=== PATIENT | female | born 1950 | race Caucasian/White ===

== ENCOUNTER 2017-01-06 12:00 | Outpatient (CLI) | payer OTHER | END 2017-01-06 12:01 | disposition home or self-care (01) | DX: M19.011 Primary osteoarthritis, right shoulder (principal) ==

== ENCOUNTER 2018-08-10 09:51 | Outpatient (CLI) | payer OTHER ==
--- NOTE | 2018-08-11 12:20 | Mammography Report ---
Reason: SCREENING MAMMO Procedure Date: 08/10/2018 Accession Number: [id number] / [id number] Procedure: PAULETTE - Screening Mammo w/Loyd CPT Code: FULL RESULT: EXAM: Screening Mammo w/Loyd DATE: 08/10/2018 11:30 AM CLINICAL HISTORY: 68-year-old female for screening. TECHNIQUE: Bilateral CC and MLO views were obtained. COMPARISON: 04/29/2016, 04/22/2015, 03/22/2014, 09/29/2012. FINDINGS: The breasts demonstrate scattered fibroglandular densities bilaterally. A stable subcentimeter well-rounded partially hyperdense nodule in the lower left breast at the 6:00 position to mammographically demonstrates morphology suggestive of a lymph node, in conjunction with stability over time this is typically benign. No suspicious masses, clustered microcalcifications, or regions of architectural distortion are identified. IMPRESSION: Benign findings RECOMMENDATION: Routine annual screening unless otherwise clinically indicated. BIRADS CATEGORY 2: Benign findings STANDARD QUALIFYING STATEMENTS: 1. This examination was not reviewed with the aid of Computer-Aided Detection (CAD). 2. A negative or benign imaging report should not delay biopsy if clinically suspicious findings are present. Consider surgical consultation if warrented. More than 5% of cancers are not identified by imaging. 3. Dense breasts may obscure an underlying neoplasm. 4. This examination was reviewed with the aid of 3D breast imaging (tomosynthesis).
== END 2018-08-10 09:52 | disposition home or self-care (01) ==
LOC: DI 09:51
DX: Z12.31 Encounter for screening mammogram for malignant neoplasm of breast (principal)
CPT/HCPCS: 77063; 77067

== ENCOUNTER 2019-08-10 07:51 | Outpatient (CLI) | payer OTHER ==
[2019-08-10 08:21] LABS: BASOPHILS % (AUTO) 0.5 %; EOSINOPHILS # (AUTO) 0.2 10^3/uL (0.0-0.7); EOSINOPHILS % (AUTO) 5.2 %; HGB - HEMOGLOBIN 14.1 g/dL (12.0-16.0); LYMPHOCYTES # (AUTO) 1.7 10^3/uL (1.5-3.5); LYMPHOCYTES % (AUTO) 45.5 %; MEAN CORPUSCULAR HEMOGLOBIN 34.4 pg (27.0-31.0); MEAN CORPUSCULAR HGB CONC 33.7 g/dL (32.0-36.0); MEAN CORPUSCULAR VOLUME 102.2 fL (81.0-99.0); MEAN PLATELET VOLUME 8.8 fL (7.9-10.8); MONOCYTES # (AUTO) 0.3 10^3/uL (0.0-1.0); MONOCYTES % (AUTO) 9.3 %; NEUTROPHILS # (AUTO) 1.4 10^3/uL (1.5-6.6); NEUTROPHILS % (AUTO) 39.2 %; PLT - PLATELET COUNT 214 10^3/uL (130-450); RED CELL DISTRIBUTION WIDTH 12.7 % (12.0-15.0); WHITE BLOOD COUNT 3.7 x10^3/uL (4.8-10.8)
[2019-08-10 08:39] LABS: ALBUMIN 4.4 g/dL (3.2-5.5); ALBUMIN/GLOBULIN RATIO 1.5 (1.0-2.2); ALKALINE PHOSPHATASE 69 IU/L (42-121); ALT ALANINE AMINOTRANSFERASE 16 IU/L (10-60); AST ASPARTATE AMINOTRANSFERASE 22 IU/L (10-42); BILIRUBIN,TOTAL 0.7 mg/dL (0.2-1.0); BUN - BLOOD UREA NITROGEN 15 mg/dL (6-20); CALCIUM 9.5 mg/dL (8.5-10.3); CARBON DIOXIDE - CO2 30 mmol/L (21-32); CHLORIDE 103 mmol/L (101-111); CHOL/HDL RATIO 3.9 (<4.4); CHOLESTEROL 234 mg/dL; CREATININE 0.7 mg/dL (0.4-1.0); GFR - MDRD 83 (>89); GLUCOSE 93 mg/dL (70-100); HDL CHOLESTEROL 60 mg/dL; SODIUM 141 mmol/L (135-145); TOTAL PROTEIN 7.4 g/dL (6.7-8.2)
== END 2019-08-10 07:52 | disposition home or self-care (01) ==
LOC: LAB 07:51
PROVIDERS: ATTEND Family Medicine
DX: D49.2 Neoplasm of unspecified behavior of bone, soft tissue, and skin (principal); I48.0 Paroxysmal atrial fibrillation; M81.0 Age-related osteoporosis without current pathological fracture
CPT/HCPCS: 36415; 80053; 80061; 83721; 84443; 85025

== ENCOUNTER 2019-08-29 08:15 | Outpatient (CLI) | payer OTHER ==
--- NOTE | 2019-08-31 10:10 | Mammography Report ---
Reason: ROUTINE MAMMO Procedure Date: 08/29/2019 Accession Number: [id number] / [id number] Procedure: PAULETTE - Screening Mammo w/Loyd CPT Code: Final Report FULL RESULT: EXAM: Screening Mammo w/Loyd DATE: 08/29/2019 8:46 AM CLINICAL HISTORY: Routine screening TECHNIQUE: (B) - Bilateral CC and MLO views were obtained. COMPARISON: 08/10/2018, 04/29/2016, 04/22/2015, 03/22/2014, 09/29/2012, 11/02/2010, 04/27/2010, 11/14/2009 and 11/05/2009. PARENCHYMAL PATTERN: (A) - The breasts demonstrate scattered fibroglandular densities bilaterally. FINDINGS: No significant interval change. There are no suspicious masses, calcifications, or areas of distortion. IMPRESSION: Negative examination. BI-RADS category 1. RECOMMENDATION: (ANNUAL) - Recommend routine annual screening mammography. BI-RADS CATEGORY: (1) - Negative. STANDARD QUALIFYING STATEMENTS: 1. This examination was not reviewed with the aid of Computer-Aided Detection (CAD). 2. A negative or benign imaging report should not preclude biopsy if clinically suspicious findings are present. 3. Dense breasts may obscure an underlying neoplasm. 4. This examination was reviewed with the aid of 3D breast imaging (tomosynthesis).
== END 2019-08-29 08:16 | disposition home or self-care (01) ==
LOC: DI 08:15
DX: Z12.31 Encounter for screening mammogram for malignant neoplasm of breast (principal)
CPT/HCPCS: 77063; 77067

== ENCOUNTER 2020-06-29 07:13 | Outpatient (CLI) | payer MEDICARE ==
--- NOTE | 2020-06-29 18:37 | Ultrasound Report ---
PROCEDURE: Pelvic w/Transvaginal INDICATIONS: PELVIC PAIN TECHNIQUE: Real-time scanning was performed of the pelvic organs, with image documentation. Additional endovagi nal scanning was necessary due to incomplete visualization of the adnexal and endometrial structures by transabdominal scanning. COMPARISON: None. FINDINGS: Transabdominal scanning: Limited scanning through the kidneys shows no hydronephrosis. No pathologi c free abdominal or pelvic fluid. Endovaginal scanning: Uterus: Uterus is normal in size at 6.4 x 2.8 x 4.9 cm. The endometrium measures 6.0 mm in combined thickness. There is a 1.2 x 0.3 x 0.5 cm mixed solid/multicystic lesion within the endometrial compl ex concerning for retained products of conception. Ovaries: Right ovary measures 2.1 x 0.8 x 1.1 cm. Left ovary measures 1.7 x 1.1 x 1.6 cm. Ovaries ar e sonographically normal. IMPRESSION: 1.2 x 0.3 x 0.5 cm mixed solid/multicystic lesion in the endometrium highly suspicious for retained p roducts of conception, gestational trophoblastic disease or other neoplastic process including endome trial carcinoma. Recommend correlation with beta-hCG levels and clinical findings as well as gynecolo gic consultation. Reviewed by: Ca Dodd MD, PhD on 06/29/2020 6:36 PM PDT Approved by: Ca Dodd MD, PhD on 06/29/2020 6:36 PM PDT Station ID: [id number]
== END 2020-06-29 07:14 | disposition home or self-care (01) ==
LOC: DI 07:13
PROVIDERS: ATTEND Nurse Practitioner Family
DX: R93.89 Abnormal findings on diagnostic imaging of other specified body structures (principal)
CPT/HCPCS: 76830; 76856

== ENCOUNTER 2020-07-11 06:56 | Outpatient (CLI) | payer MEDICARE ==
[2020-07-11 07:28] LABS: BASOPHILS % (AUTO) 0.7 %; EOSINOPHILS # (AUTO) 0.5 10^3/uL (0.0-0.7); EOSINOPHILS % (AUTO) 8.9 %; HGB - HEMOGLOBIN 14.3 g/dL (12.0-16.0); LYMPHOCYTES # (AUTO) 2.5 10^3/uL (1.5-3.5); LYMPHOCYTES % (AUTO) 45.4 %; MEAN CORPUSCULAR HEMOGLOBIN 35.8 pg (27.0-31.0); MEAN CORPUSCULAR VOLUME 102.3 fL (81.0-99.0); MEAN PLATELET VOLUME 9.2 fL (7.9-10.8); MONOCYTES # (AUTO) 0.5 10^3/uL (0.0-1.0); MONOCYTES % (AUTO) 8.7 %; NEUTROPHILS # (AUTO) 1.9 10^3/uL (1.5-6.6); NEUTROPHILS % (AUTO) 35.7 %; PLT - PLATELET COUNT 202 10^3/uL (130-450); RED CELL DISTRIBUTION WIDTH 12.4 % (12.0-15.0); WHITE BLOOD COUNT 5.4 x10^3/uL (4.8-10.8)
[2020-07-11 07:48] LABS: PT - PROTHROMBIN TIME 11.2 secs (9.9-12.6)
== END 2020-07-11 06:57 | disposition home or self-care (01) ==
LOC: LAB 06:56
PROVIDERS: ATTEND Obstetrics & Gynecology
DX: Z01.812 Encounter for preprocedural laboratory examination (principal); N94.89 Other specified conditions associated with female genital organs and menstrual cycle; Z20.828 Contact with and (suspected) exposure to other viral communicable diseases
CPT/HCPCS: 36415; 85025; 85610; U0004

== ENCOUNTER 2020-07-16 07:26 | Day surgery (SDC) | payer MEDICARE ==
[2020-07-16] MEDS ORDERED: LACTATED RINGERS 1,000 ML IV ONE ×2 (07:30→09:43)
--- NOTE | 2020-07-16 08:17 | ANESTHESIA ---
Pre-Anesthesia VS, & Labs - Diagnosis intrauterine mass - Procedure myosure hysteroscopy, D&C Vital Signs: Temp Pulse Resp BP Pulse Ox 36.7 C 80 18 152/71 H 100 07/16/20 07:43 07/16/20 07:43 07/16/20 07:43 07/16/20 07:43 07/16/20 07:43 Height: 5 ft 4 in Weight (kg): 67.9 kg Body Mass Index: 25.7 BMI Classification: Overweight - NPO >8 hours - Is Patient ?: No - Lab Results Lab results reviewed: Yes Home Medications and Allergies Home Medications: Ambulatory Orders Ascorbic Acid [Vitamin C] 1,000 mg PO DAILY 07/10/20 Cholecalciferol (Vitamin D3) [Vitamin D3] 1,000 unit PO DAILY 07/10/20 Cyanocobalamin (Vitamin B-12) [Vitamin B-12] 1,000 mcg PO DAILY 07/10/20 Lactobacillus Acidophilus [Probiotic Acidophilus] 1 each PO ONCE 07/10/20 Multivitamin 1 each PO DAILY 07/10/20 Turmeric 400 mg PO DAILY 07/10/20 Ascorbic Acid [Vitamin C] 1,000 mg PO DAILY 07/10/20 Cholecalciferol (Vitamin D3) [Vitamin D3] 1,000 unit PO DAILY 07/10/20 Cyanocobalamin (Vitamin B-12) [Vitamin B-12] 1,000 mcg PO DAILY 07/10/20 Lactobacillus Acidophilus [Probiotic Acidophilus] 1 each PO ONCE 07/10/20 Multivitamin 1 each PO DAILY 07/10/20 Turmeric 400 mg PO DAILY 07/10/20 Allergies/Adverse Reactions: Allergies Allergy/AdvReac Type Severity Reaction Status Date / Time Penicillins Allergy Unknown Verified 07/10/20 12:42 Sulfa (Sulfonamide Allergy Hives Verified 07/10/20 12:42 Antibiotics) Anes History & Medical History - Anesthetic History Anesthesia Complications: reports: No previous complications Family history of Anesthesia Complications: Denies Family history of Malignant Hyperthermia: Denies - Medical History Cardiovascular: reports: Atrial fibrillation Pulmonary: reports: None Gastrointestinal: reports: None Urinary: reports: None Musculoskeletal: reports: Osteoporosis Endocrine/Autoimmune: reports: None Skin: reports: None - Surgical History General: Colonoscopy, Other (inguinal hernia bilat) Eyes Ears Nose Throat (EENT): Other Gynecologic: Tubal ligation Neurologic: Other (nueroma at foot) Exam General: Alert, Oriented x3, Cooperative Dental: Dentures full Upper, Dentures full Lower Mouth Openin Fingerbreadth Neck Mobility: Normal Mallampati classification: II Thyromental Distance: greater than 6 cm Respiratory: Lungs clear Cardiovascular: Regular rate (ststes hx of AF, PAT) Neurological: Normal speech Mental/Cognitive Status: Alert/Oriented X3, Normal for patient Cognitive Status: Within normal limits Plan Anesthesia Type: MAC Consent for Procedure(s) Verified and Reviewed: Yes Code Status: Attempt Resuscitation ASA classification: 2-Mild systemic disease Is this case an emergency?: No
[2020-07-16] MEDS ORDERED: LIDOCAINE 1%-EPI 1:100000 20 ML MDV ONE (08:23)
[2020-07-16] MEDS ORDERED: LIDOCAINE-MPF 2% 5 ML VIAL IM ONE (08:30)
[2020-07-16] MEDS ORDERED: PROPOFOL 200 MG/20 ML VIAL IVP ONE (08:30)
[2020-07-16] MEDS ORDERED: ePHEDrine 50 MG/ML VIAL IVP ONE (08:30)
[2020-07-16] MEDS ORDERED: ONDANSETRON 4 MG/2 ML VIAL IVP ONE (08:30)
[2020-07-16] MEDS ORDERED: fentaNYL 100 MCG/2 ML VIAL IVP ONE (08:30)
[2020-07-16] MEDS ORDERED: MIDAZOLAM 2 MG/2 ML VIAL IVP ONE (08:30)
[2020-07-16] MEDS ORDERED: BUPIVACAINE 0.25%-EPI 1:200000 PF 10 ML VIAL SUBQ ONE (09:16)
[2020-07-16] MEDS ORDERED: oxyCODONE 5 MG TABLET PO PRN (09:26)
--- NOTE | 2020-07-16 09:28 | OPERATIVE REPORT ---
Operative Report - General Planned Procedure: Hysteroscopy D&C and polypectomy Pre-Op Diagnosis: Intrauterine mass Procedure Performed: Hysteroscopy D&C and polypectomy Post Op Diagnosis: Same - Procedure Note Primary Surgeon: Nohemi Avina MD Anesthesia Provider: Oni Mcdaniels MD Anesthesia Technique: MAC Pathology: Uterine contents IV Fluids (mL): 500 (crystalloid) Estimated Blood Loss (mL): 10 Urine Output (mL): 10 (In and out catheterization at start of procedure) Indications: Patient is a 70 yo female with pelvic pain. Underwent a pelvic us which showed an intrauterine mass suggestive of retained products of conception/molar tissue vs neoplasm. Options for uterine sampling were reviewed and patient opted to proceed with surgical management. Findings: Polypoid uterine mass in posterior aspect oflower uterine segment within setting of otherwise thin endometrial thinning. Bilateral tubal ostia visualized. Complications: None - Other Other Information/Narrative: Risks benefits and alternatives to the procedure were reviewed. Consent was again confirmed. Patient was taken to the operating room where she underwent general anesthesia. She was positioned in dorsolithotomy position with legs resting in yellowfin stirrups. She was prepped and draped in the usual sterile fashion. Preoperative antibiotics were not indicated. Preoperative checklist was performed. Exam under anesthesia was performed. Speculum was placed in the vagina and the cervix was visualized. Single-tooth tenaculum was placed at the anterior cervical lip. Paracervical block was administered using a total of 18 cc of 1% lidocaine with epinephrine was injected at the 4:00 and 8:00 positions lateral to the portio of the cervix. The cervical os was serially dilated with Hegar dilators to accommodate the caliber of the diagnostic hysteroscope. The hysteroscope was inserted and findings were noted as above. Hysteroscope was removed. Sharp curettage D&C was performed with sharp curettage. Hysteroscope was reinserted and significant residual tissue was noted. The hysteroscopic morcellator was inserted through the operative port. The intrauterine polyps were morcellated under direct visualization. Uterine cavity was smooth at close of the procedure. All instruments were removed from the uterus. Tenaculum was removed. Tenaculum sites were noted to be hemostatic. All instruments were removed from the vagina. Procedure was well-tolerated without complication. Fluid deficit:140 cc NS
[2020-07-16] MEDS ORDERED: NALOXONE 0.4 MG/ML VIAL IVP PRN (09:31)
[2020-07-16] MEDS ORDERED: fentaNYL 100 MCG/2 ML VIAL IVP PRN (09:31)
[2020-07-16] MEDS ORDERED: ONDANSETRON 4 MG/2 ML VIAL IVP PRN (09:31)
[2020-07-16] MEDS ORDERED: HYDROmorphone 0.5 MG/0.5 ML SYRINGE IVP PRN (09:31)
[2020-07-16] MEDS ORDERED: ePHEDrine 50 MG/ML VIAL IVP PRN (09:31)
[2020-07-16] MEDS ORDERED: ATROPINE ABBOJECT 1 MG/10 ML SYRINGE IVP PRN (09:31)
[2020-07-16] MEDS ORDERED: MORPHINE 2 MG/ML CARPUJECT IVP PRN (09:31)
[2020-07-16] MEDS ORDERED: METOCLOPRAMIDE 10 MG/2 ML VIAL IVP PRN (09:31)
[2020-07-16] MEDS ORDERED: LACTATED RINGERS 1,000 ML IV SCH (10:00)
[2020-07-16 10:29] VITALS: BP 124/56
--- NOTE | 2020-07-16 12:29 | ANESTHESIA POST OP EVALUATION ---
Anesthesia Post Eval - Post Anesthesia Eval Vitals: Last Vital Signs Temp 36.8 C 07/16/20 10:27 Pulse 89 07/16/20 10:27 Resp 17 07/16/20 10:27 BP 124/56 L 07/16/20 10:27 Pulse Ox 96 07/16/20 10:27 CV Function Including HR & BP: positive: Stable Pain Control: positive: Satisfactory Nausea & Vomiting: positive: Negative Mental Status: positive: Baseline Respiratory Status: Airway Patent Hydration Status: Satisfactory Anesthesia Complications: positive: None
== END 2020-07-16 07:27 | disposition home or self-care (01) ==
LOC: SDS 07:26
PROVIDERS: ATTEND Obstetrics & Gynecology
PROC: 0UDB7ZZ Extraction of Endometrium, Via Natural or Artificial Opening (ICD-10-PCS; 2020-07-16)
PROC: 0UB98ZZ Excision of Uterus, Via Natural or Artificial Opening Endoscopic (ICD-10-PCS; principal; 2020-07-16 08:30)
DX: N84.0 Polyp of corpus uteri (principal); R10.2 Pelvic and perineal pain; Z87.891 Personal history of nicotine dependence; I48.91 Unspecified atrial fibrillation
CPT/HCPCS: 58558; J7120

== ENCOUNTER 2020-10-02 10:49 | Outpatient (CLI) | payer MEDICARE ==
--- NOTE | 2020-10-06 09:48 | Mammography Report ---
BILATERAL DIGITAL SCREENING MAMMOGRAM 3D/2D: 10/02/2020 CLINICAL: Routine screening. Comparison is made to exams dated: 08/29/2019 mammogram, 08/10/2018 mammogram, 04/29/2016 mammogram, 04/22/2015 mammogram, 03/22/2014 mammogram, and 09/29/2012 mammogram - [facility]. T he tissue of both breasts is predominantly fatty. There is a stable benign focal asymmetry in the left breast. No significant masses, calcifications, or other findings are seen in either breast. There has been no significant interval change. IMPRESSION: BENIGN There is no mammographic evidence of malignancy. A 1 year screening mammogram is recommended. This exam was interpreted at Station ID: [id number]. NOTE: For mammograms, a report in lay terms will be sent to the patient. Approximately 15% of breast malignancies will not be visualized mammographically. In the management of a palpable breast mass, a negative mammogram must not discourage biopsy of a clinically suspicious lesion. Electronically Signed By: Orestes Tate acr/penrad:10/05/2020 19:43:08 ACR BI-RADS Category 2: Benign Finding(s) 3342F PARENCHYMAL PATTERN: (F) - The breast(s) demonstrate(s) diffuse fatty replacement. BI-RADS CATEGORY: (2) - 2 RECOMMENDATION: (ANNUAL) - Recommend routine annual screening mammography. [id number] 1 year screening LATERALITY: (B)
== END 2020-10-02 10:50 | disposition home or self-care (01) ==
LOC: DI.N 10:49
DX: Z12.31 Encounter for screening mammogram for malignant neoplasm of breast (principal)

== ENCOUNTER 2021-10-07 08:07 | Outpatient (CLI) | payer MEDICARE ==
--- NOTE | 2021-10-08 11:59 | Ultrasound Report ---
LIMITED ULTRASOUND OF LEFT BREAST: 10/07/2021 CLINICAL: Palpable left axilla lump. Comparison is made to exams dated: 10/07/2021 mammogram, 10/02/2020 mammogram, 08/29/2019 mammogram, 1 mammogram, 04/29/2016 mammogram, and 04/22/2015 mammogram - [facility]. Color flow ultrasound of the left breast was performed. Barton scale images of the real-time examinat ion were reviewed. There is a benign normal lymph node in the left axillary tail. IMPRESSION: BENIGN There is no sonographic evidence of malignancy. The normal lymph node is benign. A 1 year screening mammogram is recommended. This exam was interpreted at Station ID: [id number]. Electronically Signed By: Aramis Teague M.D., jr/layton:10/07/2021 12:06:31 Ultrasound BI-RADS: 2 Benign BI-RADS CATEGORY: (2) - 2 RECOMMENDATION: (ANNUAL) - Recommend routine annual screening mammography. [id number] 1 year screening LATERALITY: (B)
--- NOTE | 2021-10-08 11:59 | Mammography Report ---
BILATERAL DIGITAL DIAGNOSTIC MAMMOGRAM 3D/2D: 10/07/2021 CLINICAL: Palpable left breast lump. Comparison is made to exams dated: 10/02/2020 mammogram, 08/29/2019 mammogram, 08/10/2018 mammogram, 04/29/2016 mammogram, 04/22/2015 mammogram, and 03/22/2014 mammogram - [facility]. Th e tissue of both breasts is predominantly fatty. There is an asymmetry in the left breast posterior depth lateral region seen on the craniocaudal view only. This correlates as palpated. No other significant masses, calcifications, or other findings are seen in either breast. IMPRESSION: INCOMPLETE: NEEDS ADDITIONAL IMAGING EVALUATION The asymmetry in the left breast is indeterminate. An ultrasound is recommended. This exam was interpreted at Station ID: [id number]. NOTE: For mammograms, a report in lay terms will be sent to the patient. Approximately 15% of breast malignancies will not be visualized mammographically. In the management of a palpable breast mass, a negative mammogram must not discourage biopsy of a clinically suspicious lesion. Electronically Signed By: Aramis Teague M.D., jr/layton:10/07/2021 12:06:52 ACR BI-RADS Category 0: Incomplete 3340F PARENCHYMAL PATTERN: (F) - The breast(s) demonstrate(s) diffuse fatty replacement. BI-RADS CATEGORY: (0) - 0 Ultrasound [id number] Immediate follow-up LATERALITY: (B)
== END 2021-10-07 08:08 | disposition home or self-care (01) ==
LOC: DI 08:07
DX: R92.8 Other abnormal and inconclusive findings on diagnostic imaging of breast (principal)

== ENCOUNTER 2021-11-14 08:50 | Outpatient (CLI) | payer MEDICARE ==
[2021-11-14 09:30] LABS: BASOPHILS % (AUTO) 0.9 %; EOSINOPHILS # (AUTO) 0.2 10^3/uL (0.0-0.7); EOSINOPHILS % (AUTO) 4.8 %; HCT - HEMATOCRIT 42.2 % (37.0-47.0); HGB - HEMOGLOBIN 14.3 g/dL (12.0-16.0); LYMPHOCYTES % (AUTO) 45.4 %; MEAN CORPUSCULAR HEMOGLOBIN 34.9 pg (27.0-31.0); MEAN CORPUSCULAR HGB CONC 33.9 g/dL (32.0-36.0); MEAN CORPUSCULAR VOLUME 102.9 fL (81.0-99.0); MEAN PLATELET VOLUME 9.4 fL (7.9-10.8); MONOCYTES # (AUTO) 0.4 10^3/uL (0.0-1.0); MONOCYTES % (AUTO) 9.9 %; NEUTROPHILS # (AUTO) 1.7 10^3/uL (1.5-6.6); PLT - PLATELET COUNT 236 10^3/uL (130-450); RED CELL DISTRIBUTION WIDTH 12.7 % (12.0-15.0); WHITE BLOOD COUNT 4.3 x10^3/uL (4.8-10.8)
[2021-11-14 09:42] LABS: THYROID STIMULATING HORMONE 1.9 uIU/mL (0.34-5.60)
[2021-11-14 09:44] LABS: FREE T4 (FREE THYROXINE) 0.95 ng/dL (0.58-1.64)
[2021-11-14 09:48] LABS: ALBUMIN 4.3 g/dL (3.2-5.5); ALBUMIN/GLOBULIN RATIO 1.5 (1.0-2.2); ALKALINE PHOSPHATASE 67 IU/L (42-121); ALT ALANINE AMINOTRANSFERASE 15 IU/L (10-60); AST ASPARTATE AMINOTRANSFERASE 19 IU/L (10-42); BILIRUBIN,TOTAL 0.5 mg/dL (0.2-1.0); BUN - BLOOD UREA NITROGEN 15 mg/dL (6-20); CALCIUM 9.9 mg/dL (8.5-10.3); CARBON DIOXIDE - CO2 29 mmol/L (21-32); CHLORIDE 102 mmol/L (101-111); CHOL/HDL RATIO 4.4 (<4.4); CHOLESTEROL 261 mg/dL; CREATININE 0.7 mg/dL (0.4-1.0); GFR - MDRD 83 (>89); GLUCOSE 93 mg/dL (70-100); HDL CHOLESTEROL 59 mg/dL; LDL CHOLESTEROL,CALCULATED 192 mg/dL; LDL/HDL RATIO 3.3 (<4.4); SODIUM 139 mmol/L (135-145); TOTAL PROTEIN 7.2 g/dL (6.7-8.2); TRIGLYCERIDES 48 mg/dL; VLDL CHOLESTEROL 10 mg/dL
== END 2021-11-14 08:51 | disposition home or self-care (01) ==
LOC: LAB 08:50
PROVIDERS: ATTEND Nurse Practitioner
DX: Z13.220 Encounter for screening for lipoid disorders (principal); I48.0 Paroxysmal atrial fibrillation; I10 Essential (primary) hypertension
CPT/HCPCS: 36415; 80053; 80061; 83721; 84439; 84443; 85025

== ENCOUNTER 2021-12-24 07:11 | Outpatient (CLI) | payer MEDICARE ==
--- NOTE | 2021-12-24 15:20 | Ultrasound Report ---
PROCEDURE: Carotid Doppler Complete INDICATIONS: CAROTID BRUIT, PALPITATIONS TECHNIQUE: Color and pulse Doppler interrogation was performed of both carotid systems, with image documentation and velocity measurements. COMPARISON: None. FINDINGS: Right side: Brachial blood pressure: 122/57 mm Hg. Common carotid artery peak systolic velocity: 99 cm/sec. Internal carotid artery peak systolic velocity: 87 cm/sec. Internal carotid artery end diastolic velocity: 25 cm/sec. External carotid artery peak systolic velocity: 91 cm/sec. ICA/CCA peak systolic ratio: 0.9 . Barton scale imaging description: Mild plaque at the bifurcation Percent internal carotid artery stenosis: Less than 50% . Vertebral artery: Flow direction is antegrade. Left side: Brachial blood pressure: 140/59 mm Hg. Common carotid artery peak systolic velocity: 89 cm/sec. Internal carotid artery peak systolic velocity: 97 cm/sec. Internal carotid artery end diastolic velocity: 35 cm/sec. External carotid artery peak systolic velocity: To 11 cm/sec. ICA/CCA peak systolic ratio: 1.1 . Barton scale imaging description: Mild plaque at the bifurcation. Percent internal carotid artery stenosis: Less than 50% . Vertebral artery: Flow direction is antegrade. IMPRESSION: Less than 50% stenosis of the internal carotid arteries bilaterally. The estimate of stenosis included in the report of the imaging study was calculated using the NASCET method Reviewed by: Minerva Rodriguez MD on 12/24/2021 3:18 PM PST Approved by: Minerva Rodriguez MD on 12/24/2021 3:18 PM PST Station ID: [id number]
== END 2021-12-24 07:12 | disposition home or self-care (01) ==
LOC: DI 07:11
PROVIDERS: ATTEND Internal Medicine Cardiovascular Disease
DX: R09.89 Other specified symptoms and signs involving the circulatory and respiratory systems (principal)
CPT/HCPCS: 93880

== ENCOUNTER 2022-01-05 07:17 | Outpatient (CLI) | payer MEDICARE ==
[2022-01-05 07:33] LABS: BASOPHILS % (AUTO) 0.6 %; EOSINOPHILS # (AUTO) 0.3 10^3/uL (0.0-0.7); EOSINOPHILS % (AUTO) 6.7 %; HCT - HEMATOCRIT 39.5 % (37.0-47.0); HGB - HEMOGLOBIN 13.8 g/dL (12.0-16.0); LYMPHOCYTES # (AUTO) 1.8 10^3/uL (1.5-3.5); LYMPHOCYTES % (AUTO) 37.7 %; MEAN CORPUSCULAR HEMOGLOBIN 34.9 pg (27.0-31.0); MEAN CORPUSCULAR HGB CONC 34.9 g/dL (32.0-36.0); MONOCYTES # (AUTO) 0.5 10^3/uL (0.0-1.0); MONOCYTES % (AUTO) 10.1 %; NEUTROPHILS # (AUTO) 2.1 10^3/uL (1.5-6.6); NEUTROPHILS % (AUTO) 44.7 %; PLT - PLATELET COUNT 207 10^3/uL (130-450); RED BLOOD COUNT 3.95 10^6/uL (4.20-5.40); RED CELL DISTRIBUTION WIDTH 12.4 % (12.0-15.0); WHITE BLOOD COUNT 4.8 x10^3/uL (4.8-10.8)
[2022-01-05 07:52] LABS: ALBUMIN 4.3 g/dL (3.2-5.5); ALBUMIN/GLOBULIN RATIO 1.5 (1.0-2.2); ALKALINE PHOSPHATASE 72 IU/L (42-121); ALT ALANINE AMINOTRANSFERASE 18 IU/L (10-60); AST ASPARTATE AMINOTRANSFERASE 23 IU/L (10-42); BILIRUBIN,TOTAL 0.6 mg/dL (0.2-1.0); BUN - BLOOD UREA NITROGEN 15 mg/dL (6-20); CALCIUM 9.4 mg/dL (8.5-10.3); CARBON DIOXIDE - CO2 25 mmol/L (21-32); CHLORIDE 104 mmol/L (101-111); CHOL/HDL RATIO 2.4 (<4.4); CHOLESTEROL 144 mg/dL; CREATININE 0.7 mg/dL (0.4-1.0); GFR - MDRD 83 (>89); GLUCOSE 97 mg/dL (70-100); HDL CHOLESTEROL 60 mg/dL; LDL CHOLESTEROL,CALCULATED 76 mg/dL; LDL/HDL RATIO 1.3 (<4.4); SODIUM 138 mmol/L (135-145); TOTAL PROTEIN 7.1 g/dL (6.7-8.2); TRIGLYCERIDES 41 mg/dL; VLDL CHOLESTEROL 8 mg/dL
[2022-01-05 08:04] LABS: THYROID STIMULATING HORMONE 2.04 uIU/mL (0.34-5.60)
[2022-01-05 08:06] LABS: FREE T4 (FREE THYROXINE) 0.83 ng/dL (0.58-1.64)
== END 2022-01-05 07:18 | disposition home or self-care (01) ==
LOC: LAB 07:17
PROVIDERS: ATTEND Family Medicine
DX: I48.0 Paroxysmal atrial fibrillation (principal); I10 Essential (primary) hypertension; Z13.220 Encounter for screening for lipoid disorders
CPT/HCPCS: 36415; 80053; 80061; 83721; 84439; 84443; 85025

== ENCOUNTER 2022-04-21 08:50 | Outpatient (CLI) | payer MEDICARE ==
--- NOTE | 2022-04-21 10:05 | CARDIAC PROCEDURE NOTE ---
Stress Test Report Service Date: 04/21/22 Service Time: 09:00 Ordering Provider: Gunner Munoz MD Indication for Test: Assess for inducible ischemia in patient with palpitations, sometimes associated with chest discomfort and/or shortness of breath. Significant Medical History: - is referred for a treadmill stress myocardial perfusion imaging study today, to assess for an ischemic contribution to her symptoms that include palpitations, sometimes with associated chest discomfort and shortness of breath. She was told that she had atrial fibrillation back in 2009, but only in the current calendar year has her symptom complex increased significantly. She was seen in October with concern for increasing palpitations, described as bursts of irregular fast rhythms, lasting from seconds to hours. With these episodes there has been associated lightheadedness and occasional chest discomfort with shortness of breath. She remains active, exercising every day, alternating between a cardio-directed workout and a muscle-toning weightlifting routine. She continues to feel very well with this exercise routine, as long as she is not having significant palpitation episodes. -Subsequent evaluation has included ambulatory monitoring with a Zio patch, that revealed 2 brief runs interpreted as nonsustained ventricular tachycardia with some irregularity, as well as 7 brief runs that appeared due to an atrial tachycardia. There was no recurrent atrial fibrillation, but note is made that she did not have symptoms during the monitoring period. She has very recently obtained a [employer] cell phone rhythm monitoring system to see if she can capture rhythm episodes. She also underwent carotid duplex ultrasound showing less than 50% stenoses bilaterally and an echocardiogram that reportedly showed normal left ventricular size and systolic function with near normal sized left atrium, mild mitral regurgitation and trace tricuspid regurgitation. She has been prescribed low-dose metoprolol succinate and reports that she has slowly built up to taking 1/2 tab in the evening and 1/4 tab every morning, though she has not taken it for about 28 hours prior to today's test. Cardiac Risk Factors: Positive for history of hypertension, hyperlipidemia and family history of coronary heart disease in her father; no history of diabetes. She reports smoking for about 16 years but having quit in 2005, thus with passage of another 16 years this is not a significant risk factor. Type of Stress Test: ETT with Myocardial Perfusion Imaging Procedure: -Exercise Treadmill Test- After signing informed consent, the patient underwent resting SPECT imaging and then performed treadmill exercise using a Jamar protocol. The patient exercised for 6 minutes 52 seconds and achieved a peak heart rate of 136 (90 percent predicted maximum heart rate for age), and an estimated workload of 8.4 METS. The test was terminated due to shortness of breath and generalized fatigue. Resting heart rate: 68 Peak heart rate: 136 Normal response to exercise. Resting BP: 176/93 Peak BP: 207/92 Hypertensive at rest with physiologic increase in systolic and slight decrease in diastolic BPs in response to exercise. Rhythm during exercise: Sinus rhythm throughout, with isolated PVCs (at times bigeminal) in early stage 1 of exercise, followed by a series of PVC couplets in late stage 1/early stage 2; rhythm quiesced through the remainder of the exercise period, followed by recurrence of PVC couplets (and one triplet) in early Recovery, transitioning to frequent isolated PVCs throughout the remainder of Recovery. Symptoms: She denied experiencing ANY chest discomfort; was aware of her heart beating faster, but denied sensing major palpitations. EKG at rest showed normal sinus rhythm, normal in all aspects. EKG at peak stress showed ST depression of >1.0 mm, meeting diagnostic criteria for ischemia. In Recovery HR and BP decreased towards normal though remained elevated (86, 153/84) at 4:49. Nuclear imaging performed at rest and with stress and interpretation will be reported separately. IAbdullahi MD, was present throughout this treadmill stress study and supervised it in its entirety. Summary: 1) Exercise tolerance well above average for age and sex as evidenced by KATELIN of -18.4%. 2) Normal resting EKG. 3) Adequate level of exercise was achieved on this treadmill stress test. 4) Hypertensive at rest with normal BP response to exercise. 5) Ischemic changes by EKG criteria were seen at peak stress. 6) Analysis of gated nuclear images reveals normal left ventricular size and systolic function; SPECT analysis reveals normal perfusion of the left ventricle at rest and following treadmill stress, thus no evidence of prior infarct or inducible ischemia. See separate report for more detail. CONCLUSIONS: 1) Low risk findings include above average exercise time and NO reported ischemic symptoms. 2) Concerns include frequent ventricular ectopy and ST depression at peak exercise, though the latter may represent a false positive result, given that SPECT imaging does not confirm inducible ischemia.
--- NOTE | 2022-04-22 10:14 | Nuclear Medicine Report ---
PROCEDURE: Rest and exercise myocardial perfusion SPECT with gated imaging and ejection fraction INDICATIONS: NSVT RADIOPHARMACEUTICAL: 12.05 mCi Tc-99m Myoview IV at rest and 35.2 mCi Tc-99m Myoview IV at peak exer cise. [id number] was performed. TECHNIQUE: Radiopharmaceutical was injected at peak stress test, and also at rest. SPECT images wer e obtained. SPECT myocardial perfusion images were displayed in short axis, horizontal long axis, an d vertical long axis views. Gated images were reviewed using [employer] software. COMPARISON: None available. FINDINGS: Raw data: There is good myocardial labeling by radiotracer. No significant motion artifacts. Lung- to-heart ratio is 0.41 (normal is less than 0.46 for tetrafosmin tracer). Left ventricle function: Gated images demonstrate normal left ventricle wall thickening. No segment al wall motion abnormality. No transient ischemic dilation; TID is 0.82 (normal less than 1.30). Th e left ventricle resting end-diastolic volume is 79 mL. Left ventricle stress ejection fraction is 7 3%; normal values are above 45%. Myocardial perfusion: There is normal distribution of activity in the left and right ventricular bruna cardium. No fixed or reversible perfusion defects. IMPRESSION: 1. Normal myocardial perfusion images. 2. Normal left ventricular volume and systolic function. 3. Please correlate with stress EKG result. PQRS ATTESTATIONS: Measure 322 - Is this imaging test primarily performed on a low-risk surgery patient for preoperative evaluation within 30 days preceding their low-risk non-cardiac surgery? Low-risk surgery is defined as cardiac or myocardial infarction less than 1%, including (but not limited to) endoscopic pr ocedures, superficial procedures, cataract surgery, and excisional breast surgery: Answer: No Measure 323 - Is this imaging test performed primarily for the monitoring of an asymptomatic patient who had percutaneous coronary intervention on the visit date or within 2 years of the visit date? An swer: No Measure 324 - Is this imaging test performed primarily for the initial detection and risk assessment on an asymptomatic, low coronary heart disease patient? Low CHD risk definition = clinicians should consider the maximum number of available patient factors used to estimate risk based on [place] (A TP III criteria), typically age, gender, diabetes, smoking status, and use of blood pressure medicati on, and integrate age appropriate estimates for missing elements, such as LDL or standard blood press ure. Answer: No Reviewed by: Sully Santiago MD on 04/22/2022 10:13 AM PDT Approved by: Sully Santiago MD on 04/22/2022 10:13 AM PDT Station ID: [id number]
== END 2022-04-21 08:51 | disposition home or self-care (01) ==
LOC: DI 08:50
PROVIDERS: ATTEND Internal Medicine Cardiovascular Disease
DX: I47.2 Ventricular tachycardia (principal); I10 Essential (primary) hypertension; E78.5 Hyperlipidemia, unspecified; Z82.49 Family history of ischemic heart disease and other diseases of the circulatory system; Z87.891 Personal history of nicotine dependence
CPT/HCPCS: 78452; 93016; 93017; 93018; A9500

== ENCOUNTER 2022-10-08 09:10 | Outpatient (CLI) | payer MEDICARE ==
--- NOTE | 2022-10-11 12:57 | Mammography Report ---
BILATERAL DIGITAL SCREENING MAMMOGRAM 3D/2D: 10/08/2022 Comparison is made to exams dated: 10/07/2021 mammogram, 10/02/2020 mammogram, 08/29/2019 mammogram, 1 mammogram, 04/29/2016 mammogram, and 04/22/2015 mammogram - [facility]. There are scattered areas of fibroglandular density in both breasts (category b / 25%-50% glandular t issue). No significant masses, calcifications, or other findings are seen in either breast. There has been no significant interval change. IMPRESSION: NEGATIVE There is no mammographic evidence of malignancy. A 1 year screening mammogram is recommended. Based on the Tyrer Cuzick model (a risk assessment model) the patients lifetime risk is 5.1% and her 10 year risk is 3.5%. According to the ACR, ACS, and NCCN guidelines, an annual breast MRI exam osvaldo g with mammogram is recommended if the patients lifetime risk is 20% or greater. This exam was interpreted at Station ID: [id number]. NOTE: For mammograms, a report in lay terms will be sent to the patient. Approximately 15% of breast malignancies will not be visualized mammographically. In the management of a palpable breast mass, a negative mammogram must not discourage biopsy of a clinically suspicious lesion. Electronically Signed By: Bhavesh melendrez/layton:10/08/2022 16:57:59 ACR BI-RADS Category 1: Negative 3341F PARENCHYMAL PATTERN: (A) - The breast(s) demonstrate(s) scattered fibroglandular densities. BI-RADS CATEGORY: (1) - 1 RECOMMENDATION: (ANNUAL) - Recommend routine annual screening mammography. [id number] 1 year screening LATERALITY: (B)
== END 2022-10-08 09:11 | disposition home or self-care (01) ==
LOC: DI 09:10
DX: Z12.31 Encounter for screening mammogram for malignant neoplasm of breast (principal)

== ENCOUNTER 2023-02-23 09:41 | Outpatient (CLI) | payer MEDICARE ==
[2023-02-23 09:54] LABS: BASOPHILS % (AUTO) 0.4 %; EOSINOPHILS # (AUTO) 0.2 10^3/uL (0.0-0.7); EOSINOPHILS % (AUTO) 2.9 %; HGB - HEMOGLOBIN 13.2 g/dL (12.0-16.0); LYMPHOCYTES # (AUTO) 1.4 10^3/uL (1.5-3.5); MEAN CORPUSCULAR HEMOGLOBIN 33.3 pg (27.0-31.0); MEAN PLATELET VOLUME 8.9 fL (7.9-10.8); MONOCYTES # (AUTO) 0.4 10^3/uL (0.0-1.0); MONOCYTES % (AUTO) 7.8 %; NEUTROPHILS # (AUTO) 3.2 10^3/uL (1.5-6.6); NEUTROPHILS % (AUTO) 61.7 %; PLT - PLATELET COUNT 210 10^3/uL (130-450); RED BLOOD COUNT 3.96 10^6/uL (4.20-5.40); RED CELL DISTRIBUTION WIDTH 12.5 % (12.0-15.0); WHITE BLOOD COUNT 5.1 x10^3/uL (4.8-10.8)
[2023-02-23 10:01] LABS: CALCIUM 9.8 mg/dL (8.5-10.3); CREATININE 0.7 mg/dL (0.4-1.0); POTASSIUM 3.6 mmol/L (3.5-5.0)
== END 2023-02-23 09:42 | disposition home or self-care (01) ==
LOC: LAB 09:41
PROVIDERS: ATTEND Internal Medicine
DX: I48.0 Paroxysmal atrial fibrillation (principal)
CPT/HCPCS: 36415; 80048; 85025

== ENCOUNTER 2023-10-10 09:31 | Outpatient (CLI) | payer MEDICARE ==
--- NOTE | 2023-10-11 09:13 | Mammography Report ---
BILATERAL DIGITAL SCREENING MAMMOGRAM 3D/2D: 10/10/2023 CLINICAL: Routine screening. Comparison is made to exams dated: 10/08/2022 mammogram, 10/07/2021 mammogram, 10/02/2020 mammogram, mammogram, 08/10/2018 mammogram, and 04/29/2016 mammogram - [facility]. There are scattered areas of fibroglandular density in both breasts (category b / 25%-50% glandular t issue). No significant masses, calcifications, or other findings are seen in either breast. There has been no significant interval change. IMPRESSION: NEGATIVE There is no mammographic evidence of malignancy. A 1 year screening mammogram is recommended. Based on the Tyrer Cuzick model (a risk assessment model) the patients lifetime risk is 4.8% and her 10 year risk is 3.6%. According to the ACR, ACS, and NCCN guidelines, an annual breast MRI exam osvaldo g with mammogram is recommended if the patients lifetime risk is 20% or greater. This exam was interpreted at Station ID: [id number]. NOTE: For mammograms, a report in lay terms will be sent to the patient. Approximately 15% of breast malignancies will not be visualized mammographically. In the management of a palpable breast mass, a negative mammogram must not discourage biopsy of a clinically suspicious lesion. Electronically Signed By: Sabine munoz/layton:10/10/2023 15:38:14 letter sent: No_Letter ACR BI-RADS Category 1: Negative 3341F PARENCHYMAL PATTERN: (A) - The breast(s) demonstrate(s) scattered fibroglandular densities. BI-RADS CATEGORY: (1) - 1 Mammogram [id number] 1 year screening LATERALITY: (B)
== END 2023-10-10 09:32 | disposition home or self-care (01) ==
LOC: DI 09:31
DX: Z12.31 Encounter for screening mammogram for malignant neoplasm of breast (principal); R92.323 Mammographic fibroglandular density, bilateral breasts

== ENCOUNTER 2023-12-07 13:19 | Outpatient (CLI) | payer MEDICARE ==
--- NOTE | 2023-12-07 14:13 | XRAY Report ---
PROCEDURE: Hip w/Pelvis 2-3V LT INDICATIONS: LEFT HIP PAIN TECHNIQUE: 2 views of the hip were acquired. COMPARISON: None. FINDINGS: Bones: No fractures or dislocations. Mild bilateral hip joint space narrowing and juxta-articular os teophytosis. Degenerative changes of the lower lumbar spine and bilateral SI joints. No suspicious trav ny lesions. Soft tissues: No suspicious soft tissue calcifications or masses. Above-average colonic stool burden . IMPRESSION: 1.No acute bony abnormality. If there is high clinical suspicion for a radiographically occult fractu re, consider cross-sectional imaging for further evaluation. 2.Mild bilateral hip joint osteoarthritis. 3.Above-average colonic stool burden which may correlate with constipation. Reviewed by: Amaris Garza MD on 12/07/2023 2:12 PM PST Approved by: Amaris Garza MD on 12/07/2023 2:12 PM PST Station ID: [id number]
--- NOTE | 2023-12-07 19:33 | XRAY Report ---
PROCEDURE: Lumbar Spine 2-3V INDICATIONS: LOW BACK PAIN TECHNIQUE: 3 view(s) of the lumbar spine were acquired. COMPARISON: None. FINDINGS: Bones: Vertebral body height and alignment is maintained. No suspicious bony lesions. Convex left satnam mbar scoliosis present. Generalized decreased osseous mineralization present. Lower lumbar spine disc space narrowing and hypertrophic facet joints. Soft tissues: Overlying bowel gas pattern is normal. No suspicious soft tissue calcifications. Ath erosclerotic calcification of the abdominal aorta without evidence of aneurysm. IMPRESSION: Degenerative disc disease and arthropathy. Osteopenia. Reviewed by: Antony Mckeon MD on 12/07/2023 6:32 PM [place] Approved by: Antony Mckeon MD on 12/07/2023 6:32 PM [place] Station ID: [id number]
== END 2023-12-07 13:20 | disposition home or self-care (01) ==
LOC: DI 13:19
PROVIDERS: ATTEND Nurse Practitioner
DX: M47.816 Spondylosis without myelopathy or radiculopathy, lumbar region (principal); M51.36 Other intervertebral disc degeneration, lumbar region; M85.88 Other specified disorders of bone density and structure, other site; M16.0 Bilateral primary osteoarthritis of hip

== ENCOUNTER 2024-01-27 14:05 | Outpatient (CLI) | payer MEDICARE ==
--- NOTE | 2024-01-27 16:46 | DEXA Report ---
PROCEDURE: Dexa Spine and/or Hip INDICATIONS: POST MENOPAUSAL TECHNIQUE: Dual energy x-ray absorptiometry (DXA) was performed on a [employer]Wafers System. Regions measur ed are the AP Spine, femoral neck, and if needed forearm. COMPARISON: None FINDINGS: Lumbar Spine: Bone Mineral Density: 0.849 g/cm/cm,T score: -2.8. Left Femoral Neck: Bone Mineral Density: 0.871 g/cm/cm, T score: -1.2. Left Hip: Bone Mineral Density: 0.815 g/cm/cm,T score: -1.5. (T score greater or equal to -1.0: NORMAL) (T score from -1.1 to -2.4: OSTEOPENIA) (T score less than or equal to -2.5 to: OSTEOPOROSIS) Impression: By WHO criteria, this patient has osteoporosis. Patients with diagnosis of osteoporosis or osteopenia should have regular bone mineral density assess ment. For those eligible for Medicare, routine testing is allowed once every 2 years. Testing frequ ency can be increased for patients who have rapidly progressing disease or for those who are receivin g medical therapy to restore bone mass. Reviewed by: Jose R Vargas MD on 01/27/2024 4:44 PM PDT Approved by: Jose R Vargas MD on 01/27/2024 4:44 PM PDT Station ID: [id number]
== END 2024-01-27 14:06 | disposition home or self-care (01) ==
LOC: DI 14:05
PROVIDERS: ATTEND Nurse Practitioner
DX: M81.0 Age-related osteoporosis without current pathological fracture (principal); Z78.0 Asymptomatic menopausal state

== ENCOUNTER 2024-03-06 07:27 | Outpatient (CLI) | payer MEDICARE ==
[2024-03-06 07:39] LABS: BASOPHILS % (AUTO) 0.4 %; EOSINOPHILS # (AUTO) 0.4 10^3/uL (0.0-0.7); EOSINOPHILS % (AUTO) 8.5 %; HCT - HEMATOCRIT 42.1 % (37.0-47.0); HGB - HEMOGLOBIN 13.6 g/dL (12.0-16.0); LYMPHOCYTES # (AUTO) 1.9 10^3/uL (1.5-3.5); LYMPHOCYTES % (AUTO) 39.7 %; MEAN CORPUSCULAR HEMOGLOBIN 33.3 pg (27.0-31.0); MEAN CORPUSCULAR HGB CONC 32.3 g/dL (32.0-36.0); MEAN CORPUSCULAR VOLUME 103.2 fL (81.0-99.0); MEAN PLATELET VOLUME 8.9 fL (7.9-10.8); MONOCYTES # (AUTO) 0.5 10^3/uL (0.0-1.0); MONOCYTES % (AUTO) 9.5 %; NEUTROPHILS % (AUTO) 41.7 %; PLT - PLATELET COUNT 223 10^3/uL (130-450); RED BLOOD COUNT 4.08 10^6/uL (4.20-5.40); RED CELL DISTRIBUTION WIDTH 13.6 % (12.0-15.0); WHITE BLOOD COUNT 4.7 x10^3/uL (4.8-10.8)
[2024-03-06 07:53] LABS: ALBUMIN 4.2 g/dL (3.2-5.5); ALBUMIN/GLOBULIN RATIO 1.3 (1.0-2.2); ALKALINE PHOSPHATASE 92 IU/L (42-121); ALT ALANINE AMINOTRANSFERASE 45 IU/L (10-60); AST ASPARTATE AMINOTRANSFERASE 59 IU/L (10-42); BILIRUBIN,TOTAL 0.5 mg/dL (0.2-1.0); BUN - BLOOD UREA NITROGEN 14 mg/dL (6-20); CALCIUM 10.2 mg/dL (8.5-10.3); CARBON DIOXIDE - CO2 30 mmol/L (21-32); CHLORIDE 103 mmol/L (101-111); CHOL/HDL RATIO 2.7 (<4.4); CHOLESTEROL 163 mg/dL; CREATININE 0.7 mg/dL (0.6-1.3); GFR - MDRD 82 (>89); GLUCOSE 97 mg/dL (74-104); HDL CHOLESTEROL 61 mg/dL; LDL CHOLESTEROL,CALCULATED 89 mg/dL; LDL/HDL RATIO 1.5 (<4.4); SODIUM 138 mmol/L (135-145); TOTAL PROTEIN 7.5 g/dL (6.4-8.9); TRIGLYCERIDES 64 mg/dL (48-352); VLDL CHOLESTEROL 13 mg/dL
[2024-03-06 08:08] LABS: THYROID STIMULATING HORMONE 2.01 uIU/mL (0.34-5.60)
== END 2024-03-06 07:28 | disposition home or self-care (01) ==
LOC: LAB 07:27
PROVIDERS: ATTEND Nurse Practitioner
DX: I10 Essential (primary) hypertension (principal); E78.5 Hyperlipidemia, unspecified; I48.0 Paroxysmal atrial fibrillation; I47.10 Supraventricular tachycardia, unspecified
CPT/HCPCS: 36415; 80053; 80061; 83721; 84443; 85025

== ENCOUNTER 2024-06-15 09:55 | Outpatient (CLI) | payer MEDICARE ==
--- NOTE | 2024-06-17 21:20 | XRAY Report ---
PROCEDURE: Shoulder 2+V LT INDICATIONS: LEFT SHOULDER JOINT PAIN TECHNIQUE: 3 views of the shoulder were acquired. COMPARISON: None. FINDINGS: Bones: No fractures or dislocations. Moderate acromioclavicular and mild glenohumeral joint degener ation. Decreased osseous mineralization. No suspicious bony lesions. Visualized ribs appear intact. Soft tissues: No suspicious soft tissue calcifications. The visualized lungs are within normal limi ts. IMPRESSION: No acute bony abnormality. Moderate acromioclavicular and mild glenohumeral joint degeneration. Reviewed by: Jose R Vargas MD on 06/17/2024 9:19 PM PDT Approved by: Jose R Vargas MD on 06/17/2024 9:19 PM PDT Station ID: [id number]
== END 2024-06-15 09:56 | disposition home or self-care (01) ==
LOC: DI 09:55
PROVIDERS: ATTEND Physician Assistant
DX: M25.512 Pain in left shoulder (principal); M19.012 Primary osteoarthritis, left shoulder